=== PATIENT | female | born 1970 | race Caucasian/White ===

== ENCOUNTER → 2018-04-12 17:58 | Outpatient (CLI) | payer OTHER | END | disposition home or self-care (01) | LOC: D.LABREF 17:58 | DX: R31.9 Hematuria, unspecified (principal) ==

== ENCOUNTER → 2018-04-14 15:44 | Outpatient (CLI) | payer OTHER | END | disposition home or self-care (01) | LOC: D.CT 15:44 | DX: R31.21 Asymptomatic microscopic hematuria (principal) ==

== ENCOUNTER → 2020-02-07 08:27 | Outpatient (CLI) | payer OTHER ==
[~2020-02-07] VITALS: Ht 165.1 cm; Wt 69.4 kg
[2020-02-07 12:38] VITALS: Ht 165.1 cm; Wt 69.4 kg
== END | disposition home or self-care (01) ==
LOC: D.FANS 08:27
PROVIDERS: ATTEND Family Medicine
DX: E11.9 Type 2 diabetes mellitus without complications (principal)

== ENCOUNTER → 2020-02-09 10:52 | Outpatient (CLI) | payer OTHER ==
[2020-02-07 12:38] VITALS: BMI 25.4
[~2020-02-09 10:52] MED LIST: BUPROPION XL300 MG PO; CYCLOBENZAPRINE10 MG PO; GLUCOPHAGE500 MG PO; LIPITOR20 MG PO; OXYBUTYNIN CHLOR5 M1 PO; XANAX0.5 MG PO
[2020-02-14 07:37] VITALS: BMI 25.1
== END | disposition home or self-care (01) ==
LOC: D.US 10:52
PROVIDERS: ATTEND Family Medicine
DX: R92.8 Other abnormal and inconclusive findings on diagnostic imaging of breast (principal)

== ENCOUNTER 2020-02-14 06:23 | Day surgery (SDC) | payer OTHER ==
[~2020-02-14] VITALS: Ht 165.1 cm; Wt 68.6 kg
[2020-02-14 06:57] LABS: BASOPHILS 0.3 % (0-2); EOSINOPHILS 1.5 % (0-7); HEMATOCRIT 45.5 % (36.0-48.0); HEMOGLOBIN 15.7 g/dL (12-16); IMMATURE GRANULOCYTES 0.2 % (0-5); MCH 31.8 pg (26.0-34.0); MCHC 34.5 g/dL (31.0-37.0); MCV 92.3 fL (80.0-100.0); MEAN PLATELET VOLUME 9.3 fL (7.4-10.4); MONOCYTES 5.6 % (2-11); NEUTROPHILS 61.4 % (40-80); PLATELET COUNT 322 10x3/uL (130-400); RBC 4.93 10x6/uL (4.00-5.40); RDW 12.9 % (11.5-14.5); WBC 9.6 10x3/uL (4.8-10.8)
[2020-02-14 07:10] LABS: ANION GAP 13.4 mmol/L (8-16); CALCIUM 8.9 mg/dL (8.5-10.1); CARBON DIOXIDE 29.3 mmol/L (21.0-32.0); CREATININE - SERUM 0.9 mg/dL (0.6-1.3); POTASSIUM - SERUM 3.7 mmol/L (3.5-5.1)
[2020-02-14] MEDS ORDERED: BUPROPION XL300 MG PO (07:27)
[2020-02-14] MEDS ORDERED: LIPITOR20 MG PO (07:27)
[2020-02-14] MEDS ORDERED: GLUCOPHAGE500 MG PO (07:27)
[2020-02-14] MEDS ORDERED: CYCLOBENZAPRINE10 MG PO (07:28)
[2020-02-14] MEDS ORDERED: OXYBUTYNIN CHLOR5 M1 PO (07:28)
[2020-02-14] MEDS ORDERED: XANAX0.5 MG PO (07:29)
[2020-02-14 07:37] VITALS: BP 129/84; Ht 165.1 cm; Wt 68.6 kg
--- NOTE | 2020-02-14 11:02 | NUR ---
DC INSTRUCTIONS GIVEN TO PT. STATES UNDERSTANDING. DC'D IV CATH FULLY INTACT. PT VOIDED
--- NOTE | 2020-02-14 11:33 | HP ---
PATIENT: ZOHAIB FRANKLIN MEDICAL RECORD: [id number] ACCOUNT: [id number] LOCATION:[facility] : 72 ADMISSION DATE: 02/14/20 PCP: MATTHEW NAVA MD HISTORY AND PHYSICAL EXAMINATION PRIMARY CARE DOCTOR: Matthew Nava MD HISTORY OF PRESENT ILLNESS: The patient is here for rectal bleeding. She also has chronic diarrhea. She is here to undergo colonoscopy. Due to the chronic diarrhea, we will perform random colon and rectal biopsies as well as stool cultures. The risks, possible complications and alternatives to the procedure were explained to the patient. She elects to proceed. SOCIAL HISTORY: She is a smoker. PAST MEDICAL AND SURGICAL HISTORY: Sleep apnea, she is not on CPAP though, congestive heart failure, non-insulin dependent diabetes mellitus, rheumatoid arthritis, history of LZAARO, knee surgery, eye surgery. REVIEW OF SYSTEMS: Negative for CVA or seizures. Negative for renal disease or hepatitis. HOME MEDICINES: Please see the nursing list. ALLERGIES: PENICILLIN. PHYSICAL EXAMINATION: GENERAL: The patient does not appear acutely ill. EARS: External ears appear normal. EYES: Extraocular movements are intact. NECK: Trachea is midline. CHEST: No intercostal retractions. PULMONARY: Nonlabored, no stridor. IMPRESSION: Chronic diarrhea, hematochezia. PLAN: Colonoscopy with random colon and rectal biopsies as well as stool cultures. TRANSINT:[id number] Voice Confirmation ID: [id number] DOCUMENT ID: [id number] MAURA WOO MD at 1133 CC: MATTHEW NAVA MD [id number] DICTATION DATE: 02/14/20 1005 RETINAL SURGEON: 02/14/20 1103 [id number] [place] [address]
--- NOTE | 2020-02-14 11:57 | NUR ---
PT LEFT UNIT VIA WC AT 1113
--- NOTE | 2020-02-15 08:37 | OP ---
PATIENT NAME: ZOHAIB FRANKLIN MEDICAL RECORD: [id number] :72 LOCATION:[facility] ADMISSION DATE: SURGEON: TERRANCE WOO MD DATE OF OPERATION: 02/14/2020 PREOPERATIVE DIAGNOSES: 1. Hematochezia. 2. Chronic diarrhea. POSTOPERATIVE DIAGNOSES: 1. Hematochezia. 2. Chronic diarrhea. PROCEDURES: 1. Total colonoscopy to cecum. 2. Stool cultures. 3. Random colon and rectal biopsies. SURGEON: Terrance Woo MD [employer] ASSEM[employer]ER: None. BLOOD LOSS: Minimal. ANESTHESIA: IV sedation. COMPLICATIONS: None. The risks, possible complications and alternatives to the procedure were explained to the patient. She elects to proceed. ENDOSCOPIC COURSE: The patient was conveyed to endoscopy suite electively on 02/14/2020. IV sedation was induced by the anesthesia staff. The patient was placed in the Redd position. A digital rectal examination was performed. A colonoscope was inserted through the anus. It was easily advanced to the cecum. The prep was excellent. I slowly withdrew the endoscope. I irrigated and aspirated extensively. I dragged the folds. A combination of normal imaging and narrow band imaging was utilized. I noted no diverticula. There were no colonic polyps or masses. No evidence of colitis. Stool cultures were obtained due to chronic diarrhea. Random colon and rectal biopsies were obtained due to chronic diarrhea. A retroflexed view was obtained in the rectum. I then unretroflexed the scope and removed it under direct vision. I will see the patient in my office in 2-3 weeks. The bleeding is likely hemorrhoidal in origin. TRANSINT:[id number] Voice Confirmation ID: [id number] DOCUMENT ID: [id number] OPERATIVE REPORT [id number] ZOHAIB FRANKLIN TERRANCE WOO MD at 0837 CC: SIDDHARTH NAVA MD [id number] DICTATION DATE: 02/14/20 1036 INTAKE MAN: 02/14/20 1208 [facility] 02/14/20 [id number] [place] [address]
== END 2020-02-14 11:13 | disposition home or self-care (01) ==
LOC: D.OPS 06:23
PROVIDERS: Anesthesiology; ATTEND Surgery
DX: K92.1 Melena (principal); K52.9 Noninfective gastroenteritis and colitis, unspecified; E78.5 Hyperlipidemia, unspecified; F17.200 Nicotine dependence, unspecified, uncomplicated; E11.9 Type 2 diabetes mellitus without complications

== ENCOUNTER → 2020-08-31 13:35 | Outpatient (CLI) | payer OTHER ==
[2020-02-14 07:37] VITALS: BMI 25.1
== END | disposition home or self-care (01) ==
LOC: D.MRI 13:35
PROVIDERS: ATTEND Nurse Practitioner Family
DX: M75.101 Unspecified rotator cuff tear or rupture of right shoulder, not specified as traumatic (principal)